=== PATIENT | female | born 1940 | race Caucasian/White ===

== ENCOUNTER → 2016-12-05 | Outpatient (CLI) | payer MEDICARE, BC | LOC: RAD 11:15 | DX: M17.11 Unilateral primary osteoarthritis, right knee (principal) ==

== ENCOUNTER → 2016-12-10 | Outpatient (CLI) | payer MEDICARE, BC | LOC: RAD 07:44 | DX: M25.561 Pain in right knee (principal); S83.281A Other tear of lateral meniscus, current injury, right knee, initial encounter; S83.241A Other tear of medial meniscus, current injury, right knee, initial encounter; W10.9XXA Fall (on) (from) unspecified stairs and steps, initial encounter; M71.21 Synovial cyst of popliteal space [Baker], right knee ==

== ENCOUNTER → 2017-09-01 | Outpatient (CLI) | payer MEDICARE, BC | LOC: MAMMO 10:29 | DX: Z12.31 Encounter for screening mammogram for malignant neoplasm of breast (principal) | CPT/HCPCS: G0202 ==

== ENCOUNTER → 2018-01-21 | Outpatient (CLI) | payer MEDICARE, OTHER | LOC: LAB 08:24 | DX: N76.0 Acute vaginitis (principal) ==

== ENCOUNTER → 2018-05-13 | Outpatient (CLI) | payer MEDICARE, OTHER | LOC: LAB 09:29 | PROVIDERS: Neurological Surgery | DX: Z01.812 Encounter for preprocedural laboratory examination (principal); D33.4 Benign neoplasm of spinal cord ==

== ENCOUNTER → 2018-10-25 | Outpatient (CLI) | payer MEDICARE, OTHER ==
[2018-10-25 11:20] LABS: BASO # 0.1 (0.02-0.10); EOS # 0.3 (0.04-0.40); HEMATOCRIT 45.1 % (37.0-47.0); HEMOGLOBIN 14.1 g/dL (12.5-16.0); LYMPH# 1.2 (1.50-4.00); MEAN CELL VOLUME 94 fl (78-100); MEAN CORPUSCULAR HEMOGLOBIN 29 pg (27-31); MEAN CORPUSCULAR HGB CONC 31 g/dL (33-37); MEAN PLATELET VOLUME 10.2 fl (7.4-10.4); MONO # 0.5 (0.20-0.80); NEU # 3.3 (1.40-6.50); PLATELET COUNT 227 K/mm3 (130-400); RED BLOOD COUNT 4.81 M/mm3 (4.10-5.30); RED CELL DISTRIBUTION WIDTH 13.8 % (11.5-14.5); WHITE BLOOD COUNT 5.3 K/mm3 (4.8-10.8)
[2018-10-25 11:47] LABS: CALCIUM 9.5 mg/dL (8.4-10.2); POTASSIUM 4.1 mmol/L (3.6-5.0); TOTAL BILIRUBIN 0.5 mg/dL (0.2-1.3); TOTAL PROTEIN 6.6 g/dL (6.3-8.2)
[2018-10-25 12:48] LABS: ERYTHROCYTE SEDIMENTATION RATE 3 mm/hr (0-30)
== END ==
LOC: LAB 11:03
PROVIDERS: Internal Medicine
DX: Z12.11 Encounter for screening for malignant neoplasm of colon (principal); M81.0 Age-related osteoporosis without current pathological fracture; R20.2 Paresthesia of skin; E78.2 Mixed hyperlipidemia

== ENCOUNTER → 2018-11-04 | Outpatient (CLI) | payer MEDICARE, OTHER | LOC: RAD 08:17 → LAB 08:17 → MAMMO 09:15 → RAD 09:15 | DX: Z13.820 Encounter for screening for osteoporosis (principal); M81.0 Age-related osteoporosis without current pathological fracture; M85.852 Other specified disorders of bone density and structure, left thigh; M85.88 Other specified disorders of bone density and structure, other site; Z12.11 Encounter for screening for malignant neoplasm of colon; E78.2 Mixed hyperlipidemia ==

== ENCOUNTER → 2018-11-04 | Outpatient (CLI) | payer MEDICARE, OTHER | LOC: MAMMO 08:19 | DX: Z12.31 Encounter for screening mammogram for malignant neoplasm of breast (principal) ==

== ENCOUNTER → 2021-12-18 | Outpatient (CLI) | payer MEDICARE, OTHER ==
[2021-12-18 12:14] LABS: BASO # 0.06 K/mm3 (0.02-0.10); EOS # 0.24 K/mm3 (0.04-0.40); EOS % 4.1 % (1.0-5.0); HEMATOCRIT 43.9 % (37.0-47.0); HEMOGLOBIN 13.7 g/dL (12.5-16.0); LYMPH# 0.87 K/mm3 (1.50-4.00); MEAN CELL VOLUME 94 fl (78-100); MEAN CORPUSCULAR HEMOGLOBIN 30 pg (27-31); MEAN CORPUSCULAR HGB CONC 31 g/dL (33-37); MEAN PLATELET VOLUME 9.8 fl (7.4-10.4); MONO # 0.49 K/mm3 (0.20-0.80); NEU # 4.15 K/mm3 (1.40-6.50); PLATELET COUNT 254 K/mm3 (130-400); RED BLOOD COUNT 4.65 M/mm3 (4.10-5.30); RED CELL DISTRIBUTION WIDTH 12.9 % (11.5-14.5); WHITE BLOOD COUNT 5.8 K/mm3 (4.8-10.8)
[2021-12-18 12:32] LABS: ALBUMIN 3.8 g/dL (3.4-4.8); POTASSIUM 4.3 mmol/L (3.5-5.1)
[2021-12-18 12:33] LABS: CALCIUM 9.8 mg/dL (8.3-10.5)
[2021-12-18 12:34] LABS: TOTAL PROTEIN 6.3 g/dL (6.2-8.1)
[2021-12-18 12:36] LABS: TOTAL BILIRUBIN 0.4 mg/dL (0.2-1.2)
[2021-12-18 15:25] LABS: ERYTHROCYTE SEDIMENTATION RATE 2 mm/hr (0-30)
== END ==
LOC: LAB 11:43
PROVIDERS: Internal Medicine
DX: Z12.11 Encounter for screening for malignant neoplasm of colon (principal); E78.2 Mixed hyperlipidemia; M81.0 Age-related osteoporosis without current pathological fracture; D33.4 Benign neoplasm of spinal cord; M54.16 Radiculopathy, lumbar region; K21.9 Gastro-esophageal reflux disease without esophagitis; E53.8 Deficiency of other specified B group vitamins

== ENCOUNTER → 2021-12-24 | Outpatient (CLI) | payer MEDICARE, OTHER | LOC: RAD 15:23 → LAB 15:23 | DX: Z12.39 Encounter for other screening for malignant neoplasm of breast (principal); M20.11 Hallux valgus (acquired), right foot; M81.0 Age-related osteoporosis without current pathological fracture ==

== ENCOUNTER → 2022-01-07 | Outpatient (CLI) | payer MEDICARE, OTHER | LOC: RAD 14:51 → MAMMO 16:00 | DX: Z13.820 Encounter for screening for osteoporosis (principal); M81.0 Age-related osteoporosis without current pathological fracture; M85.88 Other specified disorders of bone density and structure, other site ==

== ENCOUNTER → 2022-01-07 | Outpatient (CLI) | payer MEDICARE, OTHER | LOC: MAMMO 14:53 | DX: Z12.31 Encounter for screening mammogram for malignant neoplasm of breast (principal) ==

== ENCOUNTER → 2022-03-01 | Outpatient (CLI) | payer MEDICARE, OTHER | LOC: RAD 10:07 | DX: S32.591A Other specified fracture of right pubis, initial encounter for closed fracture (principal); S32.511A Fracture of superior rim of right pubis, initial encounter for closed fracture; W19.XXXA Unspecified fall, initial encounter ==

== ENCOUNTER → 2022-04-23 | Outpatient (CLI) | payer MEDICARE, OTHER | LOC: RAD 09:20 | DX: S32.501D Unspecified fracture of right pubis, subsequent encounter for fracture with routine healing (principal) ==

== ENCOUNTER → 2022-05-06 | Outpatient (CLI) | payer MEDICARE, OTHER | LOC: LAB 10:11 | DX: Z20.822 Contact with and (suspected) exposure to COVID-19 (principal) ==

== ENCOUNTER → 2023-08-05 | Outpatient (CLI) | payer MEDICARE, OTHER ==
[2023-08-05 12:01] LABS: BASO # 0.03 K/mm3 (0.02-0.10); EOS # 0.15 K/mm3 (0.04-0.40); EOS % 2.4 % (1.0-5.0); HEMOGLOBIN 13.7 g/dL (12.5-16.0); LYMPH# 0.87 K/mm3 (1.50-4.00); MEAN CELL VOLUME 96 fl (78-100); MEAN CORPUSCULAR HEMOGLOBIN 30 pg (27-31); MEAN CORPUSCULAR HGB CONC 31 g/dL (33-37); MEAN PLATELET VOLUME 9.9 fl (7.4-10.4); MONO # 0.45 K/mm3 (0.20-0.80); NEU # 4.74 K/mm3 (1.40-6.50); PLATELET COUNT 243 K/mm3 (130-400); RED CELL DISTRIBUTION WIDTH 13.6 % (11.5-14.5); WHITE BLOOD COUNT 6.2 K/mm3 (4.8-10.8)
[2023-08-05 12:10] LABS: ALBUMIN 3.8 g/dL (3.4-4.8)
[2023-08-05 12:11] LABS: CALCIUM 9.3 mg/dL (8.3-10.5)
[2023-08-05 12:12] LABS: TOTAL PROTEIN 6.4 g/dL (6.2-8.1)
[2023-08-05 12:14] LABS: TOTAL BILIRUBIN 0.6 mg/dL (0.2-1.2)
[2023-08-05 12:18] LABS: MAGNESIUM 1.7 mg/dL (1.60-2.60)
[2023-08-05 13:23] LABS: ERYTHROCYTE SEDIMENTATION RATE 1 mm/hr (0-30)
== END ==
LOC: LAB 11:39
PROVIDERS: Internal Medicine
DX: Z12.11 Encounter for screening for malignant neoplasm of colon (principal); M81.0 Age-related osteoporosis without current pathological fracture; E53.8 Deficiency of other specified B group vitamins; K21.9 Gastro-esophageal reflux disease without esophagitis; M54.16 Radiculopathy, lumbar region; D33.4 Benign neoplasm of spinal cord; K90.9 Intestinal malabsorption, unspecified; E78.2 Mixed hyperlipidemia

== ENCOUNTER → 2023-08-10 | Outpatient (CLI) | payer MEDICARE, OTHER | LOC: LAB 14:04 | DX: Z12.11 Encounter for screening for malignant neoplasm of colon (principal); M81.0 Age-related osteoporosis without current pathological fracture; E53.8 Deficiency of other specified B group vitamins; K21.9 Gastro-esophageal reflux disease without esophagitis; M54.16 Radiculopathy, lumbar region; D33.4 Benign neoplasm of spinal cord; K90.9 Intestinal malabsorption, unspecified; E78.2 Mixed hyperlipidemia ==

== ENCOUNTER → 2023-11-09 | Outpatient (CLI) | payer MEDICARE, OTHER ==
[2023-11-09 09:31] VITALS: BP 135/85
== END ==
LOC: AMSURD 09:06
DX: E53.8 Deficiency of other specified B group vitamins (principal)
CPT/HCPCS: J3420

== ENCOUNTER → 2024-01-21 | Outpatient (CLI) | payer MEDICARE, OTHER ==
[~2024-01-21] MED LIST: CALCIUM500 M1 PO; CRANBERRY500 M3 PO; ESTRACE 1MG1 MG/TAB PO; NEXIUM 40MG40 MG PO
[2024-01-21 13:56] LABS: PH-URINE 7.5 (5.0 - 8.0); URINE APPEARANCE CLOUDY (CLEAR); URINE BILIRUBIN NEGATIVE (NEGATIVE); URINE BLOOD 1+ (NEGATIVE); URINE COLOR YELLOW (YELLOW); URINE GLUCOSE NEGATIVE (NEGATIVE); URINE KETONE NEGATIVE (NEGATIVE); URINE NITRATE POSITIVE (NEGATIVE); URINE PROTEIN(semi-quant) 1+ (NEGATIVE)
[2024-01-21 13:57] LABS: URINE LEUKOCYTE ESTERASE 3+ (NEGATIVE); URINE WBC >50 /hpf (0-3)
== END ==
LOC: LAB 12:21
PROVIDERS: Internal Medicine
DX: R30.0 Dysuria (principal)

== ENCOUNTER → 2024-02-05 | Outpatient (CLI) | payer MEDICARE ==
[~2024-02-05] VITALS: Ht 152.4 cm; Wt 60.0 kg
[2024-02-05 16:12] VITALS: BP 108/56
== END ==
LOC: AMSURD 15:56
DX: E53.8 Deficiency of other specified B group vitamins (principal)
CPT/HCPCS: J3420

== ENCOUNTER → 2024-04-05 | Outpatient (CLI) | payer MEDICARE ==
[~2024-04-05] VITALS: Ht 152.4 cm; Wt 60.0 kg
[2024-04-05 09:26] VITALS: BP 127/66
== END ==
LOC: AMSURD 09:16
DX: E53.8 Deficiency of other specified B group vitamins (principal)
CPT/HCPCS: J3420

== ENCOUNTER → 2024-05-03 | Outpatient (CLI) | payer MEDICARE ==
[~2024-05-03] VITALS: Ht 152.4 cm; Wt 60.0 kg
[2024-05-03 09:24] VITALS: BP 144/69
== END ==
LOC: AMSURD 08:50
DX: E53.8 Deficiency of other specified B group vitamins (principal)
CPT/HCPCS: J3420

== ENCOUNTER → 2024-05-31 | Outpatient (CLI) | payer MEDICARE ==
[~2024-05-31] VITALS: Ht 152.4 cm; Wt 60.0 kg
[2024-05-31 09:19] VITALS: BP 110/95
== END ==
LOC: AMSURD 09:05
DX: E53.8 Deficiency of other specified B group vitamins (principal)
CPT/HCPCS: J3420

== ENCOUNTER → 2024-06-28 | Outpatient (CLI) | payer MEDICARE ==
[~2024-06-28] VITALS: Ht 152.4 cm; Wt 60.0 kg
[2024-06-28 10:17] VITALS: BP 127/65
== END ==
LOC: AMSURD 09:45
DX: Z51.81 Encounter for therapeutic drug level monitoring (principal); E53.8 Deficiency of other specified B group vitamins
CPT/HCPCS: J3420

== ENCOUNTER → 2024-07-25 | Outpatient (CLI) | payer MEDICARE ==
[~2024-07-25] VITALS: Ht 152.4 cm; Wt 60.0 kg
[2024-07-25 09:27] VITALS: BP 126/69
== END ==
LOC: AMSURD 09:12
DX: E53.8 Deficiency of other specified B group vitamins (principal)
CPT/HCPCS: J3420

== ENCOUNTER → 2024-10-20 | Outpatient (CLI) | payer MEDICARE ==
[~2024-10-20] VITALS: Ht 152.4 cm; Wt 60.0 kg
[2024-10-20 10:10] VITALS: BP 139/78
== END ==
LOC: AMSURD 09:52
DX: E53.8 Deficiency of other specified B group vitamins (principal)
CPT/HCPCS: J3420

== ENCOUNTER → 2024-11-21 | Outpatient (CLI) | payer MEDICARE ==
[~2024-11-21] VITALS: Ht 152.4 cm; Wt 60.0 kg
[2024-11-21 15:18] VITALS: BP 134/71
== END ==
LOC: AMSURD 13:56
DX: E53.8 Deficiency of other specified B group vitamins (principal)
CPT/HCPCS: J3420

== ENCOUNTER → 2025-01-24 | Outpatient (CLI) | payer MEDICARE ==
[2025-01-24 15:55] LABS: BASO # 0.04 K/mm3 (0.02-0.10); EOS # 0.19 K/mm3 (0.04-0.40); EOS % 3.4 % (1.0-5.0); HEMATOCRIT 44.8 % (37.0-47.0); HEMOGLOBIN 14.1 g/dL (12.5-16.0); LYMPH# 1.08 K/mm3 (1.50-4.00); MEAN CELL VOLUME 95 fl (78-100); MEAN CORPUSCULAR HEMOGLOBIN 30 pg (27-31); MEAN CORPUSCULAR HGB CONC 32 g/dL (33-37); MEAN PLATELET VOLUME 9.8 fl (7.4-10.4); MONO # 0.41 K/mm3 (0.20-0.80); NEU # 3.92 K/mm3 (1.40-6.50); PLATELET COUNT 233 K/mm3 (130-400); RED BLOOD COUNT 4.74 M/mm3 (4.10-5.30); RED CELL DISTRIBUTION WIDTH 13.1 % (11.5-14.5); WHITE BLOOD COUNT 5.7 K/mm3 (4.8-10.8)
[2025-01-24 15:56] LABS: ALBUMIN 3.9 g/dL (3.4-4.8); SODIUM 140 mmol/L (136-145)
[2025-01-24 15:58] LABS: CALCIUM 9.3 mg/dL (8.3-10.5)
[2025-01-24 15:59] LABS: GLUCOSE 86 mg/dL (65-105); TOTAL PROTEIN 6.7 g/dL (6.2-8.1)
[2025-01-24 16:00] LABS: CARBON DIOXIDE 27 mmol/L (23-31)
[2025-01-24 16:01] LABS: TOTAL BILIRUBIN 0.6 mg/dL (0.2-1.2)
[2025-01-24 16:04] LABS: AST-SGOT 16 U/L (5-34)
[2025-01-24 16:05] LABS: ALT/SGPT 13 U/L (0-55)
[2025-01-24 18:10] LABS: D-DIMER 0.61 mg/L FEU (0.15-0.50)
== END ==
LOC: LAB 15:38
PROVIDERS: Internal Medicine
DX: R06.00 Dyspnea, unspecified (principal)

== ENCOUNTER → 2025-01-27 | Outpatient (CLI) | payer MEDICARE, OTHER ==
[~2025-01-27] MED LIST changes: +Iohexol 300 - 100 ML VIAL IV ONE; +NS 100 ML IV SCH
== END ==
LOC: RAD 10:15
DX: M71.21 Synovial cyst of popliteal space [Baker], right knee (principal); M89.8X8 Other specified disorders of bone, other site; R06.00 Dyspnea, unspecified
CPT/HCPCS: Q9967